=== PATIENT | female | born 1985 | race American Indian/Alaskan Native ===

== ENCOUNTER 2018-08-20 13:29 | Emergency (ER) | payer OTHER ==
[2018-08-20 13:41] VITALS: BP 110/75
--- NOTE | 2018-08-20 14:58 | XRAY Report ---
Reason: fall Procedure Date: 08/20/2018 Accession Number: [id number] / [id number] Procedure: XR - Sacrum/Coccyx CPT Code: FULL RESULT: EXAM: SACRUM AND COCCYX RADIOGRAPHY EXAM DATE: 08/20/2018 02:17 PM. HISTORY: Fall. COMPARISONS: None. TECHNIQUE: 2 views. FINDINGS: Alignment: Normal. The sacrum and coccyx are normally aligned. Bones: Sharp anterior angulation of the coccyx between the first and second coccygeal segments may represent coccygeal fracture. Joints: Normal. The sacroiliac joints and visualized hips are within normal limits. Soft Tissues: An intrauterine device is seen projecting over the mid pelvis. IMPRESSION: Suspect coccyx fracture as described. [facility] CRITICAL RESULT: The findings were discussed with Dr. Corral on 08/20/2018 at 2:59 PM.
[2018-08-20] MEDS ORDERED: IBUPROFEN 800 MG TABLET PO STA (15:22)
--- NOTE | 2018-08-20 15:23 | ED Physician Documentation ---
History of Present Illness - Stated complaint Stated Complaint: GLF/PX IN TAILBONE - Chief complaint Chief Complaint: Back Pain - History obtained from History obtained from: Patient - History of Present Illness Timing: Last night Pain level max: 10 Pain level now: 10 - Additonal information Additional information: dog knocked her over and fell on tailbone. Increased pain today. States worse with sitting. Better with standing. Review of Systems Constitutional: denies: Fever Respiratory: denies: Cough GI: denies: Nausea, Vomiting : denies: Dysuria, Frequency, Hesitancy, Now EGA Musculoskeletal: denies: Neck pain, Back pain PD PAST MEDICAL HISTORY - Past Medical History Past Medical History: Yes Psych: Anxiety - Past Surgical History Past Surgical History: No - Present Medications Home Medications: Ambulatory Orders Medication Instructions Recorded Confirmed Escitalopram Oxalate 5 mg PO DAILY 08/20/18 08/20/18 Meloxicam [Mobic] 15 mg PO DAILY PRN #20 tablet 08/20/18 Oxycodone HCl/Acetaminophen 1 - 2 each PO Q6H PRN #14 tablet 08/20/18 [Percocet 5-325 mg Tablet] Polyethylene Glycol 3350 [Miralax] 17 gm PO DAILY PRN #1 bottle 08/20/18 hydrOXYzine pamoate [Hydroxyzine 25 mg PO TID 08/20/18 08/20/18 Pamoate] - Allergies Allergies/Adverse Reactions: Allergies Allergy/AdvReac Type Severity Reaction Status Date / Time No Known Drug Allergies Allergy Verified 08/20/18 13:40 - Social History Does the pt smoke?: No Smoking Status: Former smoker Does the pt drink ETOH?: Yes ETOH Use: Wine Does the pt have substance abuse?: No - Immunizations Immunizations are current?: Yes PD ED PE NORMAL - Vitals Vital signs reviewed: Yes - General General: Alert and oriented X 3, No acute distress - HEENT HEENT: Moist mucous membranes - Neck Neck: No bony TTP - Back Back: Other (TTP over lower sacrum, upper coccyx, remainder of spine is normal.) - Derm Derm: Warm and dry - Neuro Neuro: Alert and oriented X 3 Results - Vitals Vitals: Vital Signs - 24 hr 08/20/18 13:35 Temperature 36.6 C Heart Rate 79 Respiratory 16 Rate Blood Pressure 110/75 O2 Saturation 98 Oxygen O2 Source Room air - Rads (name of study) sacrum xray Radiology: Prelim report reviewed, EMP read contemporaneously, See rad report (Suspect coccyx fracture as described. ) PD MEDICAL DECISION MAKING - ED course Complexity details: reviewed results, considered differential, d/w patient ED course: 33-year-old female with a coccyx fracture. Will place on pain medication for home and follow-up with her doctor. We will also place on laxatives to prevent constipation. Patient counseled regarding signs and symptoms for which I believe and urgent re-evaluation would be necessary. Patient with good understanding of and agreement to plan and is comfortable going home at this time This document was made in part using voice recognition software. While efforts are made to proofread this document, sound alike and grammatical errors may occur. Departure - Departure Disposition: 01 Home, Self Care Clinical Impression: Fracture of coccyx Qualifiers: Encounter type: initial encounter Fracture type: closed Qualified Code(s): S32.2XXA - Fracture of coccyx, initial encounter for closed fracture Condition: Good Instructions: ED Fx Coccyx Follow-Up: your,doctor in 1 week [Other] Prescriptions: Meloxicam [Mobic] 15 mg PO DAILY PRN #20 tablet PRN Reason: pain Oxycodone HCl/Acetaminophen [Percocet 5-325 mg Tablet] 1 - 2 each PO Q6H PRN #14 tablet PRN Reason: pain Polyethylene Glycol 3350 [Miralax] 17 gm PO DAILY PRN #1 bottle PRN Reason: Constipation Comments: Return if you worsen. You should obtain a doughnut to sit on from the pharmacy. This may take 4-6 weeks to heal. Do not drink alcohol or drive while on narcotic pain medicine. Note that many narcotic pain relievers also contain tylenol/acetaminophen. Please ensure that your total dose of acetaminophen from all sources does not exceed 3 grams (3000mg) per day. You may constipated on this medication, take a stool softener such as "Colace" twice a day while you are on it. Also recommend a lzov-esi-ysrebeg laxative such as senna or MiraLAX any day that you do not have a bowel movement. If you received narcotic pain medication in the emergency department, do not drive or operate machinery for the next 24 hours. Forms: Activity restrictions
== END 2018-08-20 15:34 | disposition home or self-care (01) ==
LOC: ED 13:29
DX: S32.2XXA Fracture of coccyx, initial encounter for closed fracture (principal); W10.9XXA Fall (on) (from) unspecified stairs and steps, initial encounter; Z87.891 Personal history of nicotine dependence
CPT/HCPCS: 72220; 99283; A9270

== ENCOUNTER 2019-03-17 07:27 | Day surgery (SDC) | payer OTHER ==
[2019-03-17] MEDS ORDERED: NEOSTIGMINE 1 MG/1 ML 10 ML MDV IVP ONE (07:28)
[2019-03-17] MEDS ORDERED: DEXAMETHASONE 4 MG/ML VIAL IVP ONE (07:28)
[2019-03-17] MEDS ORDERED: MIDAZOLAM 2 MG/2 ML VIAL IVP ONE (07:28)
[2019-03-17] MEDS ORDERED: ROCURONIUM 50 MG/5 ML VIAL IVP ONE (07:28)
[2019-03-17] MEDS ORDERED: KETOROLAC 30 MG/ML VIAL IVP ONE (07:28)
[2019-03-17] MEDS ORDERED: GLYCOPYRROLATE 1 MG/5 ML VIAL IVP ONE (07:28)
[2019-03-17] MEDS ORDERED: fentaNYL 100 MCG/2 ML VIAL IVP ONE (07:28)
[2019-03-17] MEDS ORDERED: ONDANSETRON 4 MG/2 ML VIAL IVP ONE (07:28)
[2019-03-17] MEDS ORDERED: PROPOFOL 200 MG/20 ML VIAL IVP ONE (07:28)
[2019-03-17] MEDS ORDERED: LIDOCAINE-MPF 2% 5 ML VIAL IM ONE (07:28)
[2019-03-17] MEDS ORDERED: LACTATED RINGERS 1,000 ML IV ONE (07:35)
[2019-03-17 07:52] LABS: HCG UR QUAL NEGATIVE
--- NOTE | 2019-03-17 07:53 | ANESTHESIA ---
Pre-Anesthesia VS, & Labs - Diagnosis Desires permanent sterility - Procedure Lap salpingectomy Height 5 ft 5.98 in Weight (kg) 60.6 kg Body Mass Index 20.1 - NPO >8 hours - Is Patient ?: No - Lab Results Lab results reviewed: Yes Home Medications and Allergies Home Medications: Ambulatory Orders Fluticasone [Flonase] 1 sprays JASON DAILY 03/11/19 HYDROcod/ACETAM 5/325 [[place] 5/325] 1 - 2 ea PO Q6H PRN 03/11/19 Loratadine [Claritin] 10 mg PO 03/11/19 Rizatriptan Benzoate [Maxalt] 10 mg PO 03/11/19 Escitalopram Oxalate 5 mg PO DAILY 08/20/18 hydrOXYzine pamoate [Hydroxyzine Pamoate] 25 mg PO TID 08/20/18 Fluticasone [Flonase] 1 sprays JASON DAILY 03/11/19 HYDROcod/ACETAM 5/325 [[place] 5/325] 1 - 2 ea PO Q6H PRN 03/11/19 Loratadine [Claritin] 10 mg PO 03/11/19 Rizatriptan Benzoate [Maxalt] 10 mg PO 03/11/19 Allergies/Adverse Reactions: Allergies Allergy/AdvReac Type Severity Reaction Status Date / Time No Known Drug Allergies Allergy Verified 03/11/19 11:13 Anes History & Medical History - Anesthetic History Anesthesia Complications: reports: No previous complications Family history of Anesthesia Complications: Denies Family history of Malignant Hyperthermia: Denies - Medical History Cardiovascular: reports: None Pulmonary: reports: None Gastrointestinal: reports: None Urinary: reports: None Neuro: reports: None Musculoskeletal: reports: None, Chronic back pain Endocrine/Autoimmune: reports: None Blood Disorders: reports: None Skin: reports: None Smoking Status: Former smoker Psychosocial: reports: No issues indicated - Surgical History Eyes Ears Nose Throat (EENT): Tonsil/Adenoidectomy Gynecologic: Other Exam General: Alert, Oriented x3, Cooperative Dental: WNL Mouth Opening: Greater than 4 Fingerbreadths Neck Mobility: Normal Mallampati classification: I Thyromental Distance: greater than 6 cm Respiratory: Lungs clear Cardiovascular: Regular rate Mental/Cognitive Status: Alert/Oriented X3 Plan Anesthesia Type: General Consent for Procedure(s) Verified and Reviewed: Yes Code Status: Attempt Resuscitation ASA classification: 1-Healthy patient Is this case an emergency?: No
[2019-03-17] MEDS ORDERED: BUPIVACAINE 0.5% PF 10 ML VIAL ONE (07:57)
[2019-03-17] MEDS ORDERED: HYDROcod/ACETAM 10 MG/325 MG TABLET PO PRN (09:56)
--- NOTE | 2019-03-17 09:59 | OPERATIVE REPORT ---
Operative Report - General Procedure Date: 03/17/19 Planned Procedure: Laparoscopic bilateral salpingectomies Pre-Op Diagnosis: Undesired fertility Procedure Performed: Same as above Post Op Diagnosis: Same as above - Procedure Note Primary Surgeon: Aakash Secondary Surgeon: Darlyn Anesthesia Provider: Erik Anesthesia Technique: General ET tube Pathology: Portions of both fallopian tubes IV Fluids (mL): 500 Estimated Blood Loss (mL): 10 Indications: Undesired fertility Findings: Exam under anesthesia The uterus was of normal size, shape, and consistency and axial to retroverted. There were no adnexal masses. Operative findings the uterus was of normal size and shape. The tubes and ovaries appeared normal. The anterior and posterior cul-de-sacs were clear. Complications: None - Other Other Information/Narrative: The patient was taken to the operating room, where general endotracheal anes thesia was administered without difficulty. She was then positioned in the low dorsal lithotomy position with her lower extremities in Yellow Fin stirrups. Vagina, perineum, and abdomen were then prepped and draped in a sterile fashion. Procedure Time-Out was then performed. A sterile bivalve speculum was then inserted into the vagina. A Hulka tenaculum was placed at the anterior lip of the cervix. The speculum was then removed from the vagina. Attention was then turned to the laparoscopy. 0.5% Marcaine was injected infraumbilically, then a 7-mm horizontal skin incision made. A Verres needle was then inserted through the anterior layers of the abdominal wall with saline drop test suggesting intraperitoneal placement. Carbon dioxide gas insufflation was then performed with appropriate opening pressures noted. Once 2 L of gas was instilled, a 0-degree, 5 mm laparoscope was inserted into a 5 mm trocar and passed through the anterior layers of the abdominal wall using Optiview te chnique. The abdomen was visualized, then 2 additional ports placed at the right and left lower quadrants, first instilling local anesthetic, then placing 5 mm ports. The patient was placed into Trendelenberg and bowel swept out of the cul-de-sac. The right, distal fallopian tube was then grasped and pulled anteriorly and superiorly. The tubo-ovarian ligament was then crossclamped, cauterized, and cut using the Ligasure, then the mesosalpinx was crossclamped, cauterized, and cut, completely the right fallopian tube from the uterus at the cornual region. The right fallopian tube was then removed from the abdomen. The left distal fallopian tube including the paratubal cyst was then grasped and pulled anteriorly and superiorly. The tubo-ovarian pedicle was then crossclampe d, cauterized, and cut, the distal left fallopian tube from the left ovary. The mesosalpinx was then serially cauterized and cut until the cornual region was reached, then the fallopian tube was crossclamped cauterized and cut. The surgical sites appeared hemostatic. The left fallopian tube was removed from the abdomen. At this point the laparoscopy was deemed complete, and all trochars were removed from the abdomen. The carbon dioxide gas was then allowed to escape. The incisions were then closed with 4-0 Monocryl in a subcuticular fashion followed by Dermabond skin adhesive. The tenaculum was then removed from the anterior lip of the cervix. The sterile bivalve speculum was then reinserted to ensure that the tenaculum sites were hemostatic. No bleeding was noted, and the speculum was then removed. At this point the procedure was deemed complete. The patient was then replaced supine, awakened, extubated, and transferred to the PACU in stable condition.
[2019-03-17] MEDS ORDERED: ACETAMINOPHEN 1,000 MG/100 ML 100 ML IV ONE (10:31)
[2019-03-17 11:40] VITALS: BP 114/77
== END 2019-03-17 07:28 | disposition home or self-care (01) ==
LOC: SDS 07:27
PROVIDERS: ATTEND Obstetrics & Gynecology
PROC: 0UT74ZZ Resection of Bilateral Fallopian Tubes, Percutaneous Endoscopic Approach (ICD-10-PCS; principal; 2019-03-17 08:45)
DX: Z30.2 Encounter for sterilization (principal); N83.8 Other noninflammatory disorders of ovary, fallopian tube and broad ligament; Z87.891 Personal history of nicotine dependence
CPT/HCPCS: 58661; 81025; A9270; J0131; J7120

== ENCOUNTER 2019-03-24 18:34 | Emergency (ER) | payer OTHER ==
[2019-03-24] MEDS ORDERED: MORPHINE 2 MG/ML CARPUJECT IVP STA (18:50)
[2019-03-24] MEDS ORDERED: SODIUM CHLORIDE 0.9% 1,000 ML IV ONE (18:50)
--- NOTE | 2019-03-24 18:57 | ED Physician Documentation ---
History of Present Illness - Stated complaint Stated Complaint: ABD INCISION PX - Chief complaint Chief Complaint: General - History obtained from History obtained from: Patient - History of Present Illness Timing: Today Pain level max: 8 Pain level now: 8 - Additonal information Additional information: pt is 1 week s/p tubal ligation. states RLQ pain started today. Worsened throughout the day. No fever. No vomiting. Worse with movement and better with rest. 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 HEENT: Tonsil/Adenoidectomy - Present Medications Home Medications: Ambulatory Orders Medication Instructions Recorded Confirmed Escitalopram Oxalate 5 mg PO DAILY 08/20/18 08/20/18 Meloxicam [Mobic] 15 mg PO DAILY PRN #20 tablet 08/20/18 hydrOXYzine pamoate [Hydroxyzine 25 mg PO TID 08/20/18 08/20/18 Pamoate] Fluticasone [Flonase] 1 sprays JASON DAILY 03/11/19 03/11/19 HYDROcod/ACETAM 5/325 [[place] 5/325] 1 - 2 ea PO Q6H PRN 03/11/19 03/11/19 Loratadine [Claritin] 10 mg PO 03/11/19 Rizatriptan Benzoate [Maxalt] 10 mg PO 03/11/19 Hydrocodone/Acetaminophen 1 - 2 each PO Q6H PRN #14 tablet 03/24/19 [Hydrocodon-Acetaminophen 5-325] - Allergies Allergies/Adverse Reactions: Allergies Allergy/AdvReac Type Severity Reaction Status Date / Time No Known Drug Allergies Allergy Verified 03/11/19 11:13 - Social History Does the pt smoke?: No Smoking Status: Former smoker Does the pt drink ETOH?: Yes Does the pt have substance abuse?: No - Immunizations Immunizations are current?: Yes PD ED PE NORMAL - Vitals Vital signs reviewed: Yes - General General: Alert and oriented X 3, No acute distress, Well developed/nourished - HEENT HEENT: Moist mucous membranes - Neck Neck: Supple, no meningeal sign - Cardiac Cardiac: RRR - Respiratory Respiratory: No respiratory distress, Clear bilaterally - Abdomen Abdomen: Soft, Non distended, Other (Tender palpation right lower quadrant. No peritoneal signs. Incisions are clean dry and intact without signs of infection.) - Back Back: No CVA TTP - Derm Derm: Warm and dry - Extremities Extremities: No edema - Neuro Neuro: Alert and oriented X 3 - Psych Psych: Normal mood, Normal affect Results - Vitals Vitals: Vital Signs - 24 hr 03/24/19 03/24/19 03/24/19 18:38 19:37 20:24 Temperature 36.9 C Heart Rate 77 56 L 61 Respiratory 16 16 14 Rate Blood Pressure 129/85 H 132/86 H 119/77 O2 Saturation 99 98 100 Oxygen O2 Source Room air - Labs Labs: Laboratory Tests 03/24/19 03/24/19 03/24/19 18:55 19:04 19:04 WBC 5.4 RBC 4.65 Hgb 12.5 Hct 38.3 MCV 82.4 MCH 26.9 L MCHC 32.6 RDW 15.0 Plt Count 225 MPV 11.0 H Neut # (Auto) 3.1 Lymph # (Auto) 1.3 L Burt # (Auto) 0.5 Eos # (Auto) 0.4 Baso # (Auto) 0.0 Absolute Nucleated RBC 0.00 Nucleated RBC % 0.0 Sodium 140 Potassium 3.5 Chloride 104 Carbon Dioxide 27 Anion Gap 9.0 BUN 17 Creatinine 0.7 Estimated GFR (MDRD) 95 Glucose 90 Calcium 9.5 Total Bilirubin 0.9 AST 21 ALT 21 Alkaline Phosphatase 47 Total Protein 7.7 Albumin 4.4 Globulin 3.3 Albumin/Globulin Ratio 1.3 Lipase 33 Urine Color YELLOW Urine Clarity CLEAR Urine pH 6.5 Ur Specific [place] 1.010 Urine Protein NEGATIVE Urine Glucose (UA) NEGATIVE Urine Ketones NEGATIVE Urine Occult Blood MODERATE H Urine Nitrite NEGATIVE Urine Bilirubin NEGATIVE Urine Urobilinogen 0.2 (NORMAL) Ur Leukocyte Esterase NEGATIVE Urine RBC 6-10 H Urine WBC 0-3 Ur Squamous Epith Cells MANY Squamous H Urine Bacteria Few Ur Microscopic Review INDICATED Urine Culture Comments NOT INDICATED - Rads (name of study) CT abd/pelvis Radiology: Prelim report reviewed, EMP read contemporaneously, See rad report (Normal appendix. Unremarkable uterus and ovaries. No other significant abnormality. No acute abdominal pathology.) PD MEDICAL DECISION MAKING - ED course Complexity details: reviewed results, re-evaluated patient, considered differential, d/w patient, d/w family ED course: Patient with postoperative abdominal pain. No acute findings on CT scan or laboratory testing. Pain well controlled. Will prescribe pain medication for home and follow-up with her doctor. We will also keep her off work until Sunday when she has her postoperative appointment. Patient counseled regarding signs and symptoms for which I believe and urgent re-evaluation would be necessary. Patient with good understanding of and agreement to plan and is comfortable going home at this time This document was made in part using voice recognition software. While efforts are made to proofread this document, sound alike and grammatical errors may occur. Departure - Departure Disposition: Home, Self Care Clinical Impression: Postoperative pain Condition: Good Instructions: ED Post Op Pain Follow-Up: ZACH POND MD [Primary Care Provider] - Within 3 Days Prescriptions: Hydrocodone/Acetaminophen [Hydrocodon-Acetaminophen 5-325] 1 - 2 each PO Q6H PRN #14 tablet PRN Reason: pain Comments: Return if you worsen. Your CT scan and laboratory testing did not show any abnormalities today. Use the medication as needed for pain. Do not drink alcohol or drive while on narcotic pain medicine. Note that many narcotic pain relievers also contain tylenol/acetaminophen. Please ensure that your total dose of acetaminophen from all sources does not exceed 3 grams (3000mg) per day. You may constipated on this medication, take a stool softener such as "Colace" twice a day while you are on it. Also recommend a qzty-lwl-qqdprnq laxative such as senna or MiraLAX any day that you do not have a bowel movement. If you received narcotic pain medication in the emergency department, do not drive or operate machinery for the next 24 hours. Forms: Activity restrictions
[2019-03-24] MEDS ORDERED: IOVERSOL 320 100 ML VIAL IVP ONE ×3 (19:03→19:39)
[2019-03-24 19:05] LABS: BILIRUBIN,URINE NEGATIVE (NEGATIVE); GLUCOSE, URINE (UA) NEGATIVE (NEGATIVE); KETONES,URINE (UA) NEGATIVE (NEGATIVE); LEUKOCYTE ESTERASE, URINE NEGATIVE (NEGATIVE); NITRITE,URINE NEGATIVE (NEGATIVE); OCCULT BLOOD,URINE MODERATE (NEGATIVE); PH,URINE 6.5 PH (5.0-7.5); PROTEIN,URINE NEGATIVE (NEGATIVE); UROBILINOGEN,URINE 0.2 (NORMAL) E.U./dL (NORMAL)
[2019-03-24 19:11] LABS: BASOPHILS % (AUTO) 0.6 %; EOSINOPHILS # (AUTO) 0.4 10^3/uL (0.0-0.7); EOSINOPHILS % (AUTO) 7.7 %; HGB - HEMOGLOBIN 12.5 g/dL (12.0-16.0); LYMPHOCYTES # (AUTO) 1.3 10^3/uL (1.5-3.5); LYMPHOCYTES % (AUTO) 23.9 %; MEAN CORPUSCULAR HEMOGLOBIN 26.9 pg (27.0-31.0); MEAN CORPUSCULAR HGB CONC 32.6 g/dL (32.0-36.0); MEAN CORPUSCULAR VOLUME 82.4 fL (81.0-99.0); MONOCYTES # (AUTO) 0.5 10^3/uL (0.0-1.0); MONOCYTES % (AUTO) 9.9 %; NEUTROPHILS # (AUTO) 3.1 10^3/uL (1.5-6.6); NEUTROPHILS % (AUTO) 57.7 %; PLT - PLATELET COUNT 225 10^3/uL (130-450); RED BLOOD COUNT 4.65 10^6/uL (4.20-5.40); WHITE BLOOD COUNT 5.4 x10^3/uL (4.8-10.8)
[2019-03-24 19:12] LABS: CLARITY,URINE CLEAR (CLEAR)
[2019-03-24 19:13] LABS: BACTERIA,URINE Few /HPF (None Seen); SQUAMOUS EPITHELIAL CELL,UR MANY Squamous (<= Few)
[2019-03-24 19:25] LABS: ALBUMIN 4.4 g/dL (3.2-5.5); ALBUMIN/GLOBULIN RATIO 1.3 (1.0-2.2); BILIRUBIN,TOTAL 0.9 mg/dL (0.2-1.0); CALCIUM 9.5 mg/dL (8.5-10.3); CREATININE 0.7 mg/dL (0.4-1.0); TOTAL PROTEIN 7.7 g/dL (6.7-8.2)
--- NOTE | 2019-03-24 20:07 | CT Report ---
Reason: RLQ abd pain, 1 week post tubal ligation Procedure Date: 03/24/2019 Accession Number: [id number] / [id number] Procedure: CT - Abdomen/Pelvis W CPT Code: FULL RESULT: EXAM: CT ABDOMEN AND PELVIS EXAM DATE: 03/24/2019 07:42 PM. CLINICAL HISTORY: RLQ abd pain, 1 week post tubal ligation. COMPARISONS: None. TECHNIQUE: Routine helical CT imaging was performed through the abdomen and pelvis. IV contrast: OPTI 320 100ML. Enteric contrast: No. Reconstructions: Coronal and sagittal. In accordance with CT protocol optimization, one or more of the following dose reduction techniques were utilized for this exam: automated exposure control, adjustment of mA and/or KV based on patient size, or use of iterative reconstructive technique. FINDINGS: Lung Bases: Mild bilateral dependent atelectasis and scarring noted. Liver: Normal. No masses. Gallbladder/Bile Ducts: Unremarkable. Spleen: Normal. Pancreas: Normal. Adrenal Glands: Normal. Kidneys: Normal. No masses or hydronephrosis. Peritoneal Cavity/Bowel: Normal. No free fluid, free air or adenopathy. No masses or acute inflammatory process. The appendix is well visualized and normal. Pelvic Organs: Normal. The bladder and visualized pelvic organs are within normal limits. Vasculature: No aneurysms or other significant abnormality. Bones: No significant abnormality. Other: None. IMPRESSION: Normal appendix. Unremarkable uterus and ovaries. No other significant abnormality. No acute abdominal pathology. [facility]
[2019-03-24] MEDS ORDERED: HYDROcod/ACETAM 5/325 MG TABLET PO STA (20:14)
[2019-03-24 20:25] VITALS: BP 119/77
== END 2019-03-24 20:34 | disposition home or self-care (01) ==
LOC: ED 18:34
DX: T81.89XA Other complications of procedures, not elsewhere classified, initial encounter (principal); G89.18 Other acute postprocedural pain; Y83.8 Other surgical procedures as the cause of abnormal reaction of the patient, or of later complication, without mention of misadventure at the time of the procedure; Z98.51 Tubal ligation status; Z87.891 Personal history of nicotine dependence
CPT/HCPCS: 36415; 74177; 80053; 81001; 83690; 85025; 96374; 99284; A9270; Q9967; 81003; 87086

== ENCOUNTER 2019-07-06 18:51 | Emergency (ER) | payer OTHER ==
[2019-07-06 18:58] VITALS: BP 126/78
[2019-07-06] MEDS ORDERED: IBUPROFEN 800 MG TABLET PO STA (19:36)
--- NOTE | 2019-07-06 19:38 | ED Physician Documentation ---
PD HPI URI - Stated complaint Stated Complaint: FLU LIKE SYMPTOMS - Chief complaint Chief Complaint: General - History obtained from History obtained from: Patient (Sick for 3 days with body aches, dry cough, fevers and chills. Some runny nose. 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 HEENT: Tonsil/Adenoidectomy - Present Medications Home Medications: Ambulatory Orders Medication Instructions Recorded Confirmed Escitalopram Oxalate 5 mg PO DAILY 08/20/18 08/20/18 Meloxicam [Mobic] 15 mg PO DAILY PRN #20 tablet 08/20/18 hydrOXYzine pamoate [Hydroxyzine 25 mg PO TID 08/20/18 08/20/18 Pamoate] Fluticasone [Flonase] 1 sprays JASON DAILY 03/11/19 03/11/19 HYDROcod/ACETAM 5/325 [[place] 5/325] 1 - 2 ea PO Q6H PRN 03/11/19 03/11/19 Loratadine [Claritin] 10 mg PO 03/11/19 Rizatriptan Benzoate [Maxalt] 10 mg PO 03/11/19 Hydrocodone/Acetaminophen 1 - 2 each PO Q6H PRN #14 tablet 03/24/19 [Hydrocodon-Acetaminophen 5-325] Ibuprofen [Motrin] 800 mg PO Q8H PRN #20 tablet 07/06/19 - Allergies Allergies/Adverse Reactions: Allergies Allergy/AdvReac Type Severity Reaction Status Date / Time No Known Drug Allergies Allergy Verified 03/11/19 11:13 - Social History Does the pt smoke?: Yes Smoking Status: Current every day smoker Does the pt drink ETOH?: Yes Does the pt have substance abuse?: No - Immunizations Immunizations are current?: Yes PD ED PE NORMAL - Vitals Vital signs reviewed: Yes - General General: Alert and oriented X 3, No acute distress - HEENT HEENT: Ears normal, Pharynx benign - Neck Neck: Supple, no meningeal sign, No bony TTP - Cardiac Cardiac: RRR, No murmur - Respiratory Respiratory: No respiratory distress, Clear bilaterally - Abdomen Abdomen: Non tender - Derm Derm: No rash Results - Vitals Vitals: Vital Signs - 24 hr 07/06/19 18:54 Temperature 37.3 C Heart Rate 93 Respiratory 18 Rate Blood Pressure 126/78 O2 Saturation 100 Oxygen O2 Source Room air - Labs Labs: Laboratory Tests 07/06/19 19:01 Influenza A (Rapid) Negative Influenza B (Rapid) POSITIVE H PD MEDICAL DECISION MAKING - ED course ED course: She is been sick for about 72 hours and is otherwise without severe medical illnesses and as such Tamiflu is not indicated. Departure - Departure Disposition: Home, Self Care Clinical Impression: Influenza B Condition: Good Record reviewed to determine appropriate education?: Yes Instructions: ED Flu Prescriptions: Ibuprofen [Motrin] 800 mg PO Q8H PRN #20 tablet PRN Reason: PAIN &/OR FEVER Comments: As discussed, given the time course there is really no indication for antiviral treatment. Return for new or worsening symptoms. Follow-up with your doctor in 3 to 4 days if not better. Forms: Activity restrictions
== END 2019-07-06 19:43 | disposition home or self-care (01) ==
LOC: ED 18:51
DX: J10.1 Influenza due to other identified influenza virus with other respiratory manifestations (principal); F17.200 Nicotine dependence, unspecified, uncomplicated
CPT/HCPCS: 87275; 87276; 99283; A9270

== ENCOUNTER 2020-02-11 08:00 | Outpatient (CLI) | payer OTHER | END 2020-02-11 08:01 | disposition home or self-care (01) | LOC: LAB.R 08:00 | PROVIDERS: ATTEND Family Medicine | DX: R30.0 Dysuria (principal) | CPT/HCPCS: 87086; 87181 ==